=== PATIENT | female | born 1980 | race Two or more races ===

== ENCOUNTER 2020-12-05 16:40 | Emergency (ER) | payer OTHER ==
[~2020-12-05] VITALS: Ht 157.5 cm; Wt 83.9 kg
[2020-12-05 16:59] VITALS: BP 118/69
[2020-12-05] MEDS ORDERED: predniSONE 20 MG TABLET PO ONE (17:30)
[2020-12-05] MEDS ORDERED: ERYT3.5O9 EACHEYE (17:32)
[2020-12-05] MEDS ORDERED: TRIA15CR3 TP (17:32)
[2020-12-05] MEDS ORDERED: PRED20TA PO (17:32)
[2020-12-05] MEDS ORDERED: predniSONE 20 MG TABLET ONE (17:34)
--- NOTE | 2020-12-05 17:45 | NUR ---
Patient discharged to home in stable condition. Written and verbal after care instructions given. Patient verbalizes understanding of instruction.
== END 2020-12-05 17:44 | disposition home or self-care (01) ==
LOC: ER 16:46
DX: T78.40XA Allergy, unspecified, initial encounter (principal); X58.XXXA Exposure to other specified factors, initial encounter
CPT/HCPCS: 99283; J7512

== ENCOUNTER 2024-01-10 22:30 | Inpatient (IN) | payer MEDICAID, OTHER ==
[~2024-01-10] VITALS: Ht 157.5 cm; Wt 83.9 kg
[~2024-01-10 22:30] MED LIST: ERYT3.5O9 EACHEYE; PRED20TA PO; TRIA15CR3 TP
--- NOTE | 2024-01-10 23:15 | NUR ---
BIBFAMILY FROM HOME C/O EPIGASTRIC PAIN RADIATING TO LUQ TODAY. BLOCK TRIMMER TOOK PEPTO BISMOL & TUMS WITH NO RELIEF
--- NOTE | 2024-01-10 23:18 | NUR ---
URINE COLLECTED AND SENT TO LAB
[2024-01-10] MEDS: IV NS 0.9% 1,000 ML BAG IV ONE (23:30)
[2024-01-10] MEDS: ONDANSETRON HCL/PF 4 MG/2 ML VIAL IVP ONE (23:30)
[2024-01-10] MEDS: MORPHINE SULFATE INJ 2 MG/ML DISP.SYRIN IV ONE (23:30)
--- NOTE | 2024-01-10 23:30 | NUR ---
PIPELINE SYSTEMS OPERATOR AT BEDSIDE
[2024-01-10] MEDS ORDERED: ONDANSETRON HCL/PF 4 MG/2 ML VIAL ONE (23:34)
[2024-01-10] MEDS ORDERED: MORPHINE SULFATE INJ 4 MG/ML DISP.SYRIN ONE (23:35)
--- NOTE | 2024-01-10 23:35 | NUR ---
EKG obtained at 2323.
[2024-01-10 23:42] LABS: BASOPHILS % (AUTO) 0.1 % (0.0-2.0); EOSINOPHILS # (AUTO) 0.1 K/uL (0.0-0.7); EOSINOPHILS % (AUTO) 0.8 % (0.0-6.0); HEMATOCRIT 41 % (33-45); HEMOGLOBIN 13.8 g/dL (11.5-14.8); LYMPHOCYTES # (AUTO) 0.8 K/uL (0.8-4.8); LYMPHOCYTES % (AUTO) 6.6 % (20.0-44.0); MEAN CORPUSCULAR HEMOGLOBIN 29 PG (26.0-33.0); MEAN CORPUSCULAR HGB CONC 33 g/dl (31.0-36.0); MEAN CORPUSCULAR VOLUME 86 fL (82-100); MONOCYTES # (AUTO) 0.7 K/uL (0.1-1.30); MONOCYTES % (AUTO) 5.3 % (2.0-12.0); NEUTROPHILS # (AUTO) 10.9 K/uL (1.8-8.9); NEUTROPHILS % (AUTO) 87.2 % (43.0-81.0); PLATELET COUNT (AUTO) 252 K/uL (150-450); RED BLOOD CELL COUNT(AUTO) 4.81 MIL/uL (4.0-5.2); RED CELL DISTRIBUTION WIDTH 13.3 % (11.5-15.0); WHITE BLOOD COUNT (AUTO) 12.5 K/uL (4.3-11.0)
[2024-01-10 23:47] LABS: APPEARANCE,URINE CLEAR (CLEAR); BILIRUBIN,URINE NEGATIVE (NEGATIVE); BLOOD, URINE TRACE-INTA Ery/uL (NEGATIVE); COLOR,URINE YELLOW (YELLOW); KETONES,URINE NEGATIVE (NEGATIVE); LEUKOCYTE ESTERASE ,URINE NEGATIVE (NEGATIVE); NITRITE, URINE NEGATIVE (NEGATIVE); PH,URINE 5.5 (5.0-8.0); PROTEIN,URINE NEGATIVE (NEGATIVE); UGLUCOSE NEGATIVE (NEGATIVE)
[2024-01-10 23:48] LABS: ADD URINE CULTURE NO; BACTERIA,URINE Rare /HPF (None Seen); SQUAMOUS EPITHELIAL CELL,UR Few /HPF (None Seen); WBC,URINE 0-2 /HPF (0-3)
[2024-01-10 23:53] LABS: CALCIUM, SERUM 9.2 mg/dL (8.5-10.1); CARBON DIOXIDE 26 mmol/L (21-32); CHLORIDE 101 mmol/L (98-107); CREATININE 0.6 mg/dL (0.6-1.3); GLUCOSE 143 mg/dL (74-106); POTASSIUM 3.7 mmol/L (3.5-5.1); SODIUM SERUM 136 mmol/L (136-145); UREA NITROGEN, BLOOD 7 mg/dL (7-18)
[2024-01-10 23:57] LABS: ALANINE AMINOTRANSFERASE 231 U/L (12-78); ALBUMIN 3.9 g/dL (3.4-5.0); ALKALINE PHOSPHATASE 107 U/L (46-116); ASPARTATE AMINOTRANSFERASE 263 U/L (15-37); BILIRUBIN,DIRECT 0.8 mg/dL (0.0-0.2); BILIRUBIN,TOTAL 1.3 mg/dL (0.2-1.0); INR 1.01 (0.91-1.10); PARTIAL THROMBOPLASTIN TIME 27.9 SEC (24.3-34.3); PROTHROMBIN TIME 10.7 SECS (9.2-11.1); TOTAL PROTEIN, SERUM 8.1 g/dL (6.4-8.2)
[2024-01-11 01:01] LABS: LIPASE 4079 U/L (16-77)
[2024-01-11] MEDS ORDERED: MORPHINE SULFATE INJ 4 MG/ML DISP.SYRIN ONE (01:21)
[2024-01-11] MEDS: MORPHINE SULFATE INJ 2 MG/ML DISP.SYRIN IV ONE (01:25)
--- NOTE | 2024-01-11 03:00 | NUR ---
report given to ETHAN KAISER
--- NOTE | 2024-01-11 03:00 | NUR ---
TRANSFERRED PATIENT TO ROOM 316
--- NOTE | 2024-01-11 03:12 | NUR ---
MS ADMINISTRATIVE CLERK NOTE PATIENT ADMITTED TO UNIT FROM ER VIA GURNEY. REPORT GIVEN BY JOB FERRARA. PATIENT IS A&O X 4 AND ABLE TO MAKE NEEDS KNOWN. PATIENT IS BREATHING EVENLY AND UNLABORED ON RA, NO SOB. NO DISTRESS NOTED. WITH IV ACCESS ON RAC G#18, INTACT AND PATENT. CURRENTLY ON NPO. SKIN ASSESSMENT DONE, NO WOUND NOTED. LUNGS CLEAR BILATERALLY UPON AUSCULTATION. BOWEL SOUNDS PRESENT. PATIENT WAS ORIENTED TO ROOM AND HOW TO USE THE CALL LIGHT. ALL BELONGINGS ACCOUNTED FOR, BELONGING SHEET SIGNED.PATIENT COMPLAINED OF EPIGASTRIC PAIN RADIATING TO LUQ. PAIN MED GIVEN AT THE ED. FALL AND SAFETY MEASURES ARE IN PLACE: CALL LIGHT AND TABLE WITHIN EASY REACH, SIDE RAILS UP X 2, BED LOCKED IN LOWEST POSITION AND BED ALARM ON. PLAN OF CARE ONGOING.
[2024-01-11] MEDS: IV LR 1000 ML 1,000 ML IV SCH (04:41)
[2024-01-11] MEDS: MORPHINE SULFATE INJ 2 MG/ML DISP.SYRIN IV PRN (04:57)
[2024-01-11] MEDS: ONDANSETRON HCL/PF 4 MG/2 ML VIAL IVP PRN (04:58)
[2024-01-11 07:11] LABS: ALBUMIN 3.4 g/dL (3.4-5.0); BILIRUBIN,DIRECT 1.4 mg/dL (0.0-0.2); CREATININE 0.5 mg/dL (0.6-1.3); MAGNESIUM 1.7 mg/dL (1.8-2.4); PHOSPHORUS 3.2 mg/dL (2.5-4.9); POTASSIUM 3.7 mmol/L (3.5-5.1); TOTAL PROTEIN, SERUM 7.1 g/dL (6.4-8.2)
--- NOTE | 2024-01-11 07:27 | NUR ---
RN OPENING NOTE Received pt in bed, asleep, awaken easily. On room air, tolerating well. A/O x 4, able to make needs known, no c/o pain/discomfort at this time. IV access in RAC #18g, running LR at 250ml/hr. Safety measures maintained. Will continue with plan of care.
--- NOTE | 2024-01-11 07:30 | NUR ---
MS RN CLOSING NOTE PATIENT IN BED ASLEEP. A&O X 4 AND ABLE TO MAKE NEEDS KNOWN. PRN PAIN MEDS GIVEN ORDERED. FALL AND SAFETY MEASURES ARE IN PLACE: CALL LIGHT AND TABLE WITHIN EASY REACH, SIDE RAILS UP X 2, BED LOCKED IN LOWEST POSITION AND BED ALARM ON. ENDORSED TO DAY SHIFT NURSE FOR DIGNA.
[2024-01-11 08:00] VITALS: BP 122/85; TEMP 98.2; O2SAT 97
[2024-01-11] MEDS: PANTOPRAZOLE 40 MG VIAL IV SCH (08:53)
[2024-01-11] MEDS ORDERED: Magnesium 1GM/D5W 100ML PREMIX PIGGYBACK IV ONE (10:00)
[2024-01-11] MEDS: Magnesium 1GM/D5W 100ML PREMIX 100 ML IV SCH (10:17)
[2024-01-11 10:23] LABS: CHOLESTEROL 175 mg/dL (<200); HDL CHOLESTEROL 58 mg/dL (40-60); LDL 99 mg/dL (0-99); TRIGLYCERIDES 36 mg/dL (30-150)
[2024-01-11] MEDS: Thiamine 100 MG in IV D5W 50 ML IV SCH (11:32)
--- NOTE | 2024-01-11 12:26 | NUR ---
RN NOTE Pt verbalized she has abdominal pain with scale of 8/10, Morphine sulfate inj 4mg/2ml prn, will continue to monitor.
[2024-01-11 13:29] LABS: PREGNANCY TEST URINE QUAL NEGATIVE (NEGATIVE)
[2024-01-11 16:00] VITALS: BP 100/55; TEMP 98.1; O2SAT 94
--- NOTE | 2024-01-11 18:42 | NUR ---
RN CLOSING NOTE Pt resting in bed. On room air, tolerating well. A/O x 4, no c/o pain/discomfort at this time. IV access in RAC #18g, running LR at 125ml/hr. Needs attended. Safety measures maintained. Will endorse lacey to barrel polisher inside.
--- NOTE | 2024-01-11 19:10 | NUR ---
MS RN OPENING NOTES RECEIVED AWAKE ON BED. A/O X4. ABLE TO MAKE NEEDS KNOWN. ON ROOM AIR TOLERATING WELL WITHOUT ANY RESPIRATORY DISTRESS NOTED. WITH IV ACCESS RAC #18 RUNNING LR @ 125 ML/HR INFUSING WELL. ON NPO REINSTRUCTED. SAFETY MEASURES IMPLEMENTED. SIDE RAILS X2. BED LOCKED AND IN LOWEST POSITION. WILL CONTINUE PLAN OF CARE.
[2024-01-11 20:00] VITALS: BP 120/72; TEMP 99.3; O2SAT 97
--- NOTE | 2024-01-12 06:34 | NUR ---
MS RN CLOSING NOTES PATIENT AWAKE ON BED. A/O X4. ON ROOM AIR TOLERATED WELL WITHOUT ANY RESPIRATORY DISTRESS NOTED THE WHOLE SHIFT. WITH IV ACCESS AT RIGHT AC G.18 RUNNING LR @ 125 ML/HR. PATENT AND INTACT. NO COMPLAINTS THE WHOLE SHIFT. NEEDS ATTENDED. KEPT COMFORTABLE. SAFETY MEASURES MAINTAINED THE WHOLE SHIFT. ENDORSED TO MORNING SHIFT NURSE.
[2024-01-12 06:47] LABS: BASOPHILS % (AUTO) 0.1 % (0.0-2.0); EOSINOPHILS % (AUTO) 0.5 % (0.0-6.0); HEMATOCRIT 38 % (33-45); HEMOGLOBIN 12.7 g/dL (11.5-14.8); LYMPHOCYTES # (AUTO) 0.7 K/uL (0.8-4.8); LYMPHOCYTES % (AUTO) 8.9 % (20.0-44.0); MEAN CORPUSCULAR HEMOGLOBIN 29 PG (26.0-33.0); MEAN CORPUSCULAR HGB CONC 34 g/dl (31.0-36.0); MEAN CORPUSCULAR VOLUME 86 fL (82-100); MONOCYTES # (AUTO) 0.7 K/uL (0.1-1.30); MONOCYTES % (AUTO) 8.3 % (2.0-12.0); NEUTROPHILS # (AUTO) 6.7 K/uL (1.8-8.9); NEUTROPHILS % (AUTO) 82.2 % (43.0-81.0); PLATELET COUNT (AUTO) 194 K/uL (150-450); RED BLOOD CELL COUNT(AUTO) 4.35 MIL/uL (4.0-5.2); RED CELL DISTRIBUTION WIDTH 13.4 % (11.5-15.0); WHITE BLOOD COUNT (AUTO) 8.2 K/uL (4.3-11.0)
[2024-01-12 07:30] VITALS: BP 109/78; TEMP 99.1; O2SAT 95
--- NOTE | 2024-01-12 07:30 | NUR ---
RN OPENING NOTE PATIENT AWAKE IN BED, RESTING. A/OX4. ON ROOM AIR, BREATHING EVEN AND NON LABORED. NO SHORTNESS OF BREATH NOTED. WITH IV ACCESS ON RIGHT AC G18, PATENT INTACT AND FLUSHING WELL. WITH IV FLUID OF LR RUNNING AT 125ML/HR, INFUSING WELL. FALL AND SAFETY MEASURES IN PLACE. BED ALARM ON. BED IN LOW AND LOCKED POSITION. CALL LIGHT AND SIDE TABLE WITHIN EASY REACH. SIDE RAILS UP X3. WILL CONTINUE TO MONITOR.
[2024-01-12 07:50] LABS: ALBUMIN 2.9 g/dL (3.4-5.0); BILIRUBIN,DIRECT 0.6 mg/dL (0.0-0.2); BILIRUBIN,TOTAL 1.6 mg/dL (0.2-1.0); CALCIUM, SERUM 8.5 mg/dL (8.5-10.1); CREATININE 0.4 mg/dL (0.6-1.3); POTASSIUM 3.2 mmol/L (3.5-5.1); TOTAL PROTEIN, SERUM 6.4 g/dL (6.4-8.2)
[2024-01-12] MEDS ORDERED: POTASSIUM CL. PREMIX PERIPHER. 50 ML IV SCH (10:00)
[2024-01-12] MEDS ORDERED: ACETAMINOPHEN 325 MG TABLET PO PRN (10:00)
[2024-01-12] MEDS: LORAZEPAM 1 MG TABLET PO PRN (10:04)
[2024-01-12] MEDS: POTASSIUM CHLORIDE 20 MEQ TAB.PRT.SR PO ONE (10:04)
--- NOTE | 2024-01-12 10:05 | NUR ---
RN NOTE PATIENT FEELING ANXIOUS ABOUT DIAGNOSTIC TEST BECAUSE SHE IS CLAUSTROPHOBIC. NEW ORDER FROM VALORIE CLARK FOR ATIVAN 1MG Q8H PO PRN. SAME GIVEN PER EMAR. WILL CONTINUE TO MONITOR.
--- NOTE | 2024-01-12 13:29 | NUR ---
RN NOTE PATIENT TO DO MRCP BUT ADMIN ASSISTANT CALLED TO SAY COIL FOR MRCP IS BROKEN. NO CERTAIN TIME IT CAN BE FIXED. VALORIE AUTOMOTIVE SERVICE ASSISTANT INFORMED, SAID IT'S OKAY TO GET DONE WHEN COIL IS FIXED AND NO OTHER TEST CAN SUBSTITUTE.
[2024-01-12 16:00] VITALS: BP 114/68; TEMP 98.8; O2SAT 98
--- NOTE | 2024-01-12 18:30 | NUR ---
RN CLOSING NOTE PATIENT ASLEEP IN BED, RESTING. AWAKENS TO VERBAL STIMULI. A/OX4. ON ROOM AIR, BREATHING EVEN AND NON LABORED. NO SHORTNESS OF BREATH NOTED. WITH IV ACCESS ON RIGHT AC G18, PATENT INTACT AND FLUSHING WELL. WITH IV FLUID OF LR RUNNING AT 125ML/HR, INFUSING WELL. FALL AND SAFETY MEASURES IN PLACE. BED ALARM ON. BED IN LOW AND LOCKED POSITION. CALL LIGHT AND SIDE TABLE WITHIN EASY REACH. SIDE RAILS UP X3. SCHEDULED MEDICATIONS ADMINISTERED. PATIENT TURNED AND REPOSITIONED INDEPENDENTLY. ALL NEEDS ATTENDED AND ANTICIPATED. WILL ENDORSE TO CANE FLUME CHUTE OPERATOR NURSE.
--- NOTE | 2024-01-12 19:20 | NUR ---
RN OPENING NOTES PATIENT AWAKE IN BED, RESTING. A/OX4. ON ROOM AIR, BREATHING EVEN AND NON LABORED. NO SHORTNESS OF BREATH NOTED. WITH IV ACCESS ON RIGHT AC #18G, WITH IV FLUID OF LR RUNNING AT 125ML/HR, INTACT, PATENT AND INFUSING WELL. SAFETY MEASURES OBSERVED. WILL CONTINUE TO MONITOR.
[2024-01-12 20:00] VITALS: BP 119/65; TEMP 99; O2SAT 97
[2024-01-13 06:13] LABS: BASOPHILS % (AUTO) 0.1 % (0.0-2.0); EOSINOPHILS # (AUTO) 0.1 K/uL (0.0-0.7); EOSINOPHILS % (AUTO) 1.1 % (0.0-6.0); HEMATOCRIT 37 % (33-45); HEMOGLOBIN 12.3 g/dL (11.5-14.8); MEAN CORPUSCULAR HEMOGLOBIN 29 PG (26.0-33.0); MEAN CORPUSCULAR HGB CONC 34 g/dl (31.0-36.0); MEAN CORPUSCULAR VOLUME 86 fL (82-100); MONOCYTES # (AUTO) 0.8 K/uL (0.1-1.30); NEUTROPHILS # (AUTO) 5.9 K/uL (1.8-8.9); NEUTROPHILS % (AUTO) 75.8 % (43.0-81.0); PLATELET COUNT (AUTO) 184 K/uL (150-450); RED BLOOD CELL COUNT(AUTO) 4.27 MIL/uL (4.0-5.2); WHITE BLOOD COUNT (AUTO) 7.7 K/uL (4.3-11.0)
--- NOTE | 2024-01-13 06:49 | NUR ---
RN CLOSING NOTES LEFT PATIENT ASLEEP IN BED, A/OX4. ON ROOM AIR, BREATHING EVEN AND NON LABORED. NO SHORTNESS OF BREATH NOTED. WITH IV ACCESS ON RIGHT AC #18G, WITH LR RUNNING AT 125ML/HR, INTACT, PATENT AND INFUSING WELL. DUE MEDICATIONS GIVEN. ABLE TO MAKE NEEDS KNOWN. SAFETY MEASURES OBSERVED AND MAINTAINED. ENDORSED FOR DIGNA.
[2024-01-13 07:03] LABS: ALBUMIN 2.9 g/dL (3.4-5.0); BILIRUBIN,DIRECT 0.3 mg/dL (0.0-0.2); BILIRUBIN,TOTAL 0.9 mg/dL (0.2-1.0); CALCIUM, SERUM 8.6 mg/dL (8.5-10.1); CREATININE 0.4 mg/dL (0.6-1.3); POTASSIUM 3.8 mmol/L (3.5-5.1); TOTAL PROTEIN, SERUM 6.4 g/dL (6.4-8.2)
--- NOTE | 2024-01-13 07:27 | NUR ---
RN OPENING NOTE Received pt in bed, awaken. On room air, tolerating well. A/O x 4, able to make needs known, no c/o pain/discomfort at this time. IV access in RAC #18g, running LR at 125ml/hr. Safety measures maintained. Will continue with plan of care.
[2024-01-13 08:16] VITALS: BP 117/73; TEMP 98.8; O2SAT 98
[2024-01-13 16:18] VITALS: BP 113/76; TEMP 99.2; O2SAT 99
--- NOTE | 2024-01-13 18:50 | NUR ---
RN CLOSING NOTE Pt resting in bed. On room air, tolerating well. A/O x 4, no c/o pain/discomfort at this time. IV access in RAC #18g, running LR at 125ml/hr. Needs attended. Safety measures maintained. Will endorse lacey to night warehouse selector.
--- NOTE | 2024-01-13 19:26 | NUR ---
MS RN OPENING NOTES RECEIVED PATIENT RESTING IN BED,AWAKE,A/O X 4, VERBALLY RESPONSIVE AND ABLE TO MAKE NEEDS KNOWN, AMBULATORY WITH STEADY GAIT, STABLE ON ROOM AIR, NO DISTRESS NOTED,WITH IV ACCESS IN RAC #18G RUNNING LR AT 125ML/HR INTACT ,PATENT AND INFUSING WELL. KEPT PATIENT CLEAN,DRY AND COMFORTABLE.SAFETY MEASURES MAINTAINED;BED IN LOWEST AND LOCKED POSITION, BED ALARM ON, HOB SLIGHTLY ELEVATED, SIDE RAILS UP X2 CALL LIGHT WITHIN EASY TO REACH, CONTINUE MONITORING.
[2024-01-13 20:00] VITALS: BP 117/78; TEMP 98.8; O2SAT 93
[2024-01-14 06:37] LABS: BASOPHILS % (AUTO) 0.1 % (0.0-2.0); EOSINOPHILS # (AUTO) 0.1 K/uL (0.0-0.7); EOSINOPHILS % (AUTO) 1.6 % (0.0-6.0); HEMATOCRIT 37 % (33-45); HEMOGLOBIN 12.4 g/dL (11.5-14.8); LYMPHOCYTES # (AUTO) 0.9 K/uL (0.8-4.8); LYMPHOCYTES % (AUTO) 10.5 % (20.0-44.0); MEAN CORPUSCULAR HEMOGLOBIN 29 PG (26.0-33.0); MEAN CORPUSCULAR HGB CONC 34 g/dl (31.0-36.0); MEAN CORPUSCULAR VOLUME 87 fL (82-100); MONOCYTES # (AUTO) 0.9 K/uL (0.1-1.30); MONOCYTES % (AUTO) 10.5 % (2.0-12.0); NEUTROPHILS # (AUTO) 6.6 K/uL (1.8-8.9); NEUTROPHILS % (AUTO) 77.3 % (43.0-81.0); PLATELET COUNT (AUTO) 202 K/uL (150-450); RED BLOOD CELL COUNT(AUTO) 4.25 MIL/uL (4.0-5.2); RED CELL DISTRIBUTION WIDTH 13.4 % (11.5-15.0); WHITE BLOOD COUNT (AUTO) 8.6 K/uL (4.3-11.0)
--- NOTE | 2024-01-14 06:44 | NUR ---
MS RN CLOSING NOTES PATIENT RESTING IN BED, AWAKE,A/O X 4, VERBALLY RESPONSIVE AND ABLE TO MAKE NEEDS KNOWN,STABLE ON ROOM AIR, NO DISTRESS NOTED,WITH IV ACCESS IN RAC #18G RUNNING LR AT 125ML/HR INTACT ,PATENT AND INFUSING WELL. KEPT PATIENT CLEAN,DRY AND COMFORTABLE. ALL DUE MEDS GIVEN ORDERED, CARE/NEEDS ATTENDED WELL, SAFETY MEASURES MAINTAINED;BED IN LOWEST AND LOCKED POSITION, BED ALARM ON, HOB SLIGHTLY ELEVATED, SIDE RAILS UP X2 CALL LIGHT WITHIN EASY TO REACH, WILL ENDORSED TO AM NURSE FOR CONTINUITY OF CARE.
[2024-01-14 06:53] LABS: CALCIUM, SERUM 8.8 mg/dL (8.5-10.1); CREATININE 0.4 mg/dL (0.6-1.3); POTASSIUM 3.4 mmol/L (3.5-5.1)
--- NOTE | 2024-01-14 07:30 | NUR ---
MS RN OPENING NOTES- 316/1 RECEIVED PATIENT RESTING IN BED, AWAKE, A/O X 4, VERBALLY RESPONSIVE AND ABLE TO MAKE NEEDS KNOWN,STABLE ON ROOM AIR, NO DISTRESS NOTED,WITH IV ACCESS IN RAC #18G RUNNING LR AT 125ML/HR INTACT ,PATENT AND INFUSING WELL. NO S/SX OF INFILTRATION NOTED. NO BLEEDING NOTED. SKIN ASSESSMENT DONE, WNL. PATIENT EXPRESSES NO NEEDS OF THIS MOMENT. SAFETY MEASURES MAINTAINED;BED IN LOWEST AND LOCKED POSITION, BED ALARM ON, HOB SLIGHTLY ELEVATED, SIDE RAILS UP X2 CALL LIGHT WITHIN EASY TO REACH, WILL CONTINUE TO MONITOR.
[2024-01-14] MEDS: PANTOPRAZOLE 40 MG VIAL IV SCH (08:28)
[2024-01-14 08:30] VITALS: BP 113/71; TEMP 98.4; O2SAT 94
[2024-01-14] MEDS ORDERED: THIA100T88 PO (08:58)
[2024-01-14] MEDS ORDERED: PANT40TA2 PO (08:58)
[2024-01-14] MEDS ORDERED: HYDR-3972 PO (08:59)
[2024-01-14] MEDS ORDERED: ONDA4TAB5 PO (08:59)
[2024-01-14] MEDS ORDERED: PANTOPRAZOLE 40 MG TABLET.DR PO SCH (09:00)
[2024-01-14] MEDS ORDERED: POTASSIUM CL. PREMIX PERIPHER. 50 ML IV SCH (11:00)
[2024-01-14] MEDS: POTASSIUM CHLORIDE 20 MEQ TAB.PRT.SR PO ONE (11:19)
--- NOTE | 2024-01-14 13:09 | NUR ---
MS ENGINE HEAD REPAIRER NOTES- 316 PATIENT DISCHARGED TO HOME, AMBULATORY WITH STABLE GAIT ACCOMPANIED BY HER DAUGHTER AND VIRGINIE KAISER. . A/O X4. TOLERATING ROOM AIR WELL, BREATHING EVENLY AND UNLABORED, NO ACUTE RESPIRATORY DISTRESS NOTED. DENIED ANY PAIN OR DISCOMFORT OF THIS TIME . ALL VITAL SIGNS, WNL. ALL BELONGINGS ARE ACCOUNTED FOR BY VIRGINIE RN SIGNED AND FILED ON PATIENT'S CHART. HEALTH TEACHINGS AND DISCHARGE INSTRUCTIONS WERE GIVEN TO THE PATIENT AND HER DAUGHTER. BOTH VERBALIZED UNDERSTANDING. ALL DUE MEDS WERE GIVEN. KEPT PATIENT CLEAN, DRY AND COMFORTABLE. NAME ARMBAND AND IV ACCESS REMOVED. PATIENT LEFT UNIT @ 1305. CHARGE NURSE AND DOCTOR AWARE.
== END 2024-01-14 13:48 | disposition home or self-care (01) | DRG 282 ==
LOC: ER 22:32 → MED 01-11 02:46
PROVIDERS: ADMIT Nurse Practitioner Acute Care; ATTEND Nurse Practitioner Acute Care
DX: K85.90 Acute pancreatitis without necrosis or infection, unspecified (principal); E66.9 Obesity, unspecified; R74.01 Elevation of levels of liver transaminase levels; F19.10 Other psychoactive substance abuse, uncomplicated; Z90.49 Acquired absence of other specified parts of digestive tract; F10.90 Alcohol use, unspecified, uncomplicated; Y90.9 Presence of alcohol in blood, level not specified; Z68.33 Body mass index [BMI] 33.0-33.9, adult; K91.5 Postcholecystectomy syndrome
CPT/HCPCS: 36415; 71045-TC; 76700-TC; 80048-TC; 80061-TC; 80076-TC; 81001; 83690-TC; 83735-TC; 84100-TC; 84484-TC; 84703-TC; 85025-TC; 85730-TC; 98960; A4223; G0378; J2270; J2405; J2470; J3411; J3475; J3480; J7050; J7060; J7120

== ENCOUNTER 2024-01-22 20:26 | Inpatient (IN) | payer MEDICAID ==
[~2024-01-22] VITALS: Ht 157.5 cm; Wt 78.0 kg
[~2024-01-22 20:26] MED LIST changes: -ERYT3.5O9 EACHEYE; +HYDR-3972 PO; +ONDA4TAB5 PO; +PANT40TA2 PO; -PRED20TA PO; +THIA100T88 PO; -TRIA15CR3 TP
[2024-01-22 22:56] VITALS: O2SAT 98
[2024-01-22] MEDS ORDERED: ONDANSETRON HCL/PF 4 MG/2 ML VIAL ONE (23:11)
[2024-01-22] MEDS ORDERED: MORPHINE SULFATE INJ 4 MG/ML DISP.SYRIN ONE (23:11)
[2024-01-22] MEDS: IV NS 0.9% 1,000 ML BAG IV ONE (23:19)
[2024-01-22] MEDS: ONDANSETRON HCL/PF 4 MG/2 ML VIAL IVP ONE (23:20)
[2024-01-22] MEDS: MORPHINE SULFATE INJ 2 MG/ML DISP.SYRIN IV ONE (23:20)
[2024-01-22 23:46] LABS: BASOPHILS % (AUTO) 0.1 % (0.0-2.0); EOSINOPHILS % (AUTO) 0.3 % (0.0-6.0); HEMATOCRIT 38 % (33-45); HEMOGLOBIN 12.6 g/dL (11.5-14.8); LYMPHOCYTES # (AUTO) 0.4 K/uL (0.8-4.8); LYMPHOCYTES % (AUTO) 4.7 % (20.0-44.0); MEAN CORPUSCULAR HEMOGLOBIN 29 PG (26.0-33.0); MEAN CORPUSCULAR HGB CONC 34 g/dl (31.0-36.0); MEAN CORPUSCULAR VOLUME 87 fL (82-100); MONOCYTES # (AUTO) 0.5 K/uL (0.1-1.30); MONOCYTES % (AUTO) 6.1 % (2.0-12.0); NEUTROPHILS # (AUTO) 7.7 K/uL (1.8-8.9); NEUTROPHILS % (AUTO) 88.8 % (43.0-81.0); PLATELET COUNT (AUTO) 285 K/uL (150-450); RED BLOOD CELL COUNT(AUTO) 4.33 MIL/uL (4.0-5.2); RED CELL DISTRIBUTION WIDTH 13.4 % (11.5-15.0); WHITE BLOOD COUNT (AUTO) 8.7 K/uL (4.3-11.0)
[2024-01-22 23:59] LABS: CARBON DIOXIDE 24 mmol/L (21-32); CHLORIDE 100 mmol/L (98-107); CREATININE 0.5 mg/dL (0.6-1.3); GLUCOSE 128 mg/dL (74-106); INR 1.04 (0.91-1.10); PARTIAL THROMBOPLASTIN TIME 27.3 SEC (24.3-34.3); POTASSIUM 3.6 mmol/L (3.5-5.1); SODIUM SERUM 137 mmol/L (136-145); UREA NITROGEN, BLOOD 6 mg/dL (7-18)
[2024-01-23 00:06] LABS: ALANINE AMINOTRANSFERASE 799 U/L (12-78); ALBUMIN 3.8 g/dL (3.4-5.0); ALKALINE PHOSPHATASE 493 U/L (46-116); ASPARTATE AMINOTRANSFERASE 650 U/L (15-37); BILIRUBIN,DIRECT 1.8 mg/dL (0.0-0.2); BILIRUBIN,TOTAL 2.3 mg/dL (0.2-1.0); TOTAL PROTEIN, SERUM 8.1 g/dL (6.4-8.2)
[2024-01-23 00:08] LABS: LIPASE 3997 U/L (16-77)
[2024-01-23] MEDS ORDERED: MORPHINE SULFATE INJ 2 MG/ML DISP.SYRIN IV PRN (01:00)
[2024-01-23] MEDS ORDERED: MAGNESIUM HYDROXIDE 30 ML UDC PO PRN (01:00)
[2024-01-23] MEDS ORDERED: ACETAMINOPHEN 325 MG TABLET PO PRN (01:00)
[2024-01-23] MEDS ORDERED: Z GUARD REMEDY 4 OZ OINT TP PRN (01:00)
[2024-01-23] MEDS ORDERED: MAG HYDROX/AL HYDROX/SIMETH 30 ML UDC PO PRN (01:00)
[2024-01-23] MEDS ORDERED: ONDANSETRON HCL/PF 4 MG/2 ML VIAL IVP PRN (01:00)
[2024-01-23] MEDS ORDERED: PIPERACI/TAZO 3.375GM/D5W 50ML PB IV ONE (02:44)
[2024-01-23 02:45] VITALS: BP 115/73; TEMP 97.7; O2SAT 96
[2024-01-23] MEDS: PIPERACILLIN /TAZOBACTAM 3.375 G in IV D5W 50 ML IV ONE (02:45)
[2024-01-23] MEDS: IV LR 1000 ML 1,000 ML IV SCH ×2 (03:14→10:39)
[2024-01-23] MEDS ORDERED: IV LR 1000 ML 1,000 ML IV PRN (06:44)
[2024-01-23 06:54] LABS: APPEARANCE,URINE CLEAR (CLEAR); BILIRUBIN,URINE 2+ (NEGATIVE); BLOOD, URINE 1+ Ery/uL (NEGATIVE); COLOR,URINE YELLOW (YELLOW); KETONES,URINE 3+ mg/dL (NEGATIVE); LEUKOCYTE ESTERASE ,URINE NEGATIVE (NEGATIVE); NITRITE, URINE NEGATIVE (NEGATIVE); PROTEIN,URINE NEGATIVE (NEGATIVE); UGLUCOSE NEGATIVE (NEGATIVE)
[2024-01-23 06:55] LABS: BASOPHILS % (AUTO) 0.3 % (0.0-2.0); EOSINOPHILS % (AUTO) 0.8 % (0.0-6.0); HEMATOCRIT 36 % (33-45); HEMOGLOBIN 11.7 g/dL (11.5-14.8); LYMPHOCYTES # (AUTO) 0.7 K/uL (0.8-4.8); LYMPHOCYTES % (AUTO) 11.4 % (20.0-44.0); MEAN CORPUSCULAR HEMOGLOBIN 29 PG (26.0-33.0); MEAN CORPUSCULAR HGB CONC 33 g/dl (31.0-36.0); MEAN CORPUSCULAR VOLUME 88 fL (82-100); MONOCYTES # (AUTO) 0.5 K/uL (0.1-1.30); MONOCYTES % (AUTO) 8.3 % (2.0-12.0); NEUTROPHILS # (AUTO) 5.1 K/uL (1.8-8.9); NEUTROPHILS % (AUTO) 79.2 % (43.0-81.0); PLATELET COUNT (AUTO) 271 K/uL (150-450); RED BLOOD CELL COUNT(AUTO) 4.07 MIL/uL (4.0-5.2); RED CELL DISTRIBUTION WIDTH 13.1 % (11.5-15.0); WHITE BLOOD COUNT (AUTO) 6.5 K/uL (4.3-11.0)
[2024-01-23 07:30] VITALS: BP 109/76; TEMP 97.9; O2SAT 97
[2024-01-23 07:32] LABS: ALBUMIN 3.1 g/dL (3.4-5.0); BILIRUBIN,DIRECT 0.9 mg/dL (0.0-0.2); BILIRUBIN,TOTAL 1.4 mg/dL (0.2-1.0); CALCIUM, SERUM 8.8 mg/dL (8.5-10.1); CREATININE 0.5 mg/dL (0.6-1.3); PHOSPHORUS 4.2 mg/dL (2.5-4.9); POTASSIUM 3.7 mmol/L (3.5-5.1)
[2024-01-23 07:40] LABS: RBC,URINE 0-2 /HPF (0-2)
[2024-01-23 07:41] LABS: ADD URINE CULTURE NO; BACTERIA,URINE Rare /HPF (None Seen); SQUAMOUS EPITHELIAL CELL,UR Rare /HPF (None Seen)
[2024-01-23 07:42] LABS: WBC,URINE 0-2 /HPF (0-3)
[2024-01-23] MEDS ORDERED: ACET-73 PO (07:45)
[2024-01-23] MEDS: PANTOPRAZOLE 40 MG VIAL IV SCH (08:18)
[2024-01-23 08:33] LABS: PREGNANCY TEST URINE QUAL NEGATIVE (NEGATIVE)
[2024-01-23 16:00] VITALS: BP 114/69; TEMP 98.6; O2SAT 97
[2024-01-23 20:00] VITALS: BP 115/72; TEMP 98.4; O2SAT 97
[2024-01-24 07:42] LABS: BASOPHILS % (AUTO) 0.6 % (0.0-2.0); EOSINOPHILS # (AUTO) 0.2 K/uL (0.0-0.7); EOSINOPHILS % (AUTO) 3.2 % (0.0-6.0); HEMATOCRIT 35 % (33-45); HEMOGLOBIN 11.6 g/dL (11.5-14.8); LYMPHOCYTES # (AUTO) 1.3 K/uL (0.8-4.8); LYMPHOCYTES % (AUTO) 20.1 % (20.0-44.0); MEAN CORPUSCULAR HEMOGLOBIN 29 PG (26.0-33.0); MEAN CORPUSCULAR HGB CONC 33 g/dl (31.0-36.0); MEAN CORPUSCULAR VOLUME 87 fL (82-100); MONOCYTES # (AUTO) 0.5 K/uL (0.1-1.30); MONOCYTES % (AUTO) 8.1 % (2.0-12.0); NEUTROPHILS # (AUTO) 4.4 K/uL (1.8-8.9); PLATELET COUNT (AUTO) 244 K/uL (150-450); RED BLOOD CELL COUNT(AUTO) 4.03 MIL/uL (4.0-5.2); RED CELL DISTRIBUTION WIDTH 13.3 % (11.5-15.0); WHITE BLOOD COUNT (AUTO) 6.5 K/uL (4.3-11.0)
[2024-01-24 08:00] LABS: ALBUMIN 2.6 g/dL (3.4-5.0); BILIRUBIN,DIRECT 0.2 mg/dL (0.0-0.2); BILIRUBIN,TOTAL 0.7 mg/dL (0.2-1.0); CALCIUM, SERUM 7.9 mg/dL (8.5-10.1); CREATININE 0.4 mg/dL (0.6-1.3); MAGNESIUM 1.7 mg/dL (1.8-2.4); POTASSIUM 3.3 mmol/L (3.5-5.1)
[2024-01-24] MEDS ORDERED: IV LR 1000 ML 1,000 ML IV PRN (10:24)
== END 2024-01-24 12:50 | disposition home or self-care (01) | DRG 282 ==
LOC: ER 20:31 → MED 01-23 02:29
PROVIDERS: ADMIT Internal Medicine; ATTEND Internal Medicine
DX: K85.90 Acute pancreatitis without necrosis or infection, unspecified (principal); K83.8 Other specified diseases of biliary tract; E66.9 Obesity, unspecified; R11.2 Nausea with vomiting, unspecified; Z90.49 Acquired absence of other specified parts of digestive tract; R74.01 Elevation of levels of liver transaminase levels; Z68.31 Body mass index [BMI] 31.0-31.9, adult; F10.21 Alcohol dependence, in remission
CPT/HCPCS: 36415; 71045-TC; 80048-TC; 80076-TC; 81001; 83690-TC; 83735-TC; 84100-TC; 84484-TC; 84703-TC; 85025-TC; 85730-TC; 86140-TC; 87081-TC; A4223; G0378; J2270; J2405; J2470; J2543; J7060; J7120